=== PATIENT | male | born 1970 | race Caucasian/White ===

== ENCOUNTER 2017-11-15 15:19 | Emergency (ER) | payer SELFPAY ==
[~2017-11-15] VITALS: Ht 180.3 cm; Wt 51.0 kg
[~2017-11-15 15:19] MED LIST: ATEN1TAB73 PO; KLOR20TA6 PO; PTU50 PO; [UNRECOGNIZED DRUG - CODE] LEFT EYE
[2017-11-15 15:56] VITALS: BP 123/78; PULSE 87; RESP 18; TEMP 98.6; O2SAT 97
--- NOTE | 2017-11-15 18:47 | PD ---
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 He has had almost no vision in his left eye for the last 20 years per his report. He has history of Graves' ophthalmopathy. He does not have eye pain or injury. He reports vision in his right eye is normal. Patient was seen here 7 years ago and received a prescription for PTU but he never filled it or took it. He has never seen a doctor since. He is extremely noncompliant. Symptoms moderately severe. They are chronic going on 20 years now. No alleviating factors. Symptoms exacerbated by his noncompliance with medical treatment and follow-up. PFSH Past Medical History Blood Disorders: No Cancer: No Cardiovascular Problems: No Diminished Hearing: No Endocrine: No Genitourinary: No Immune Disorder: No Musculoskeletal: No Neurologic: No Psychiatric: No Respiratory: Yes (SPONTANEOUS PNEUMO X5) Immunizations Current: Yes Past Surgical History Tonsillectomy: Yes Social History Alcohol Use: Yes (SOCIAL) Tobacco Use: Yes (1 PPD) Substance Use: Yes (HX MARIJUANA) Allergies-Medications (Allergen,Severity, Reaction): Coded Allergies: penicillin G (Unverified Allergy, Severe, 11/15/17) morphine (Unverified Adverse Reaction, Mild, Rash, 11/15/17) Reported Meds & Prescriptions Reported Meds & Active Scripts Active No Active Prescriptions or Reported Medications Review of Systems General / Constitutional: No: Fever Eyes: Positive: Blurred Vision, Visual changes, Blindness HENT: No: Headaches Cardiovascular: No: Chest Pain or Discomfort Respiratory: No: Shortness of Breath Gastrointestinal: No: Abdominal Pain Genitourinary: No: Dysuria Musculoskeletal: No: Pain Skin: No Rash Neurologic: No: Weakness Psychiatric: No: Depression Endocrine: No: Polydipsia Hematologic/Lymphatic: No: Easy Bruising Physical Exam Narrative GENERAL: Thin disheveled well-developed patient in no apparent distress. SKIN: Focused skin assessment reveals no rash and nodules. Skin is Warm and dry. HEAD: Atraumatic. Normocephalic. EYES: Pupils equal and round. No scleral icterus. No injection or drainage. Extraocular muscles are intact. He has exophthalmos bilaterally. ENT: No nasal bleeding or discharge. Mucous membranes pink and moist. NECK: Trachea midline. No JVD. No dominant thyroid nodule or mass palpated CARDIOVASCULAR: Regular rate and rhythm. No murmur appreciated. RESPIRATORY: No accessory muscle use. Clear to auscultation. Breath sounds equal bilaterally. GASTROINTESTINAL: Abdomen soft, non-tender, nondistended. Hepatic and splenic margins not palpable. MUSCULOSKELETAL: No obvious deformities. No clubbing. No cyanosis. No edema. NEUROLOGICAL: Awake and alert. No obvious cranial nerve deficits. Motor grossly within normal limits. Normal speech. PSYCHIATRIC: Appropriate mood and affect; insight and judgment poor Data Data Last Documented VS Vital Signs Date Time Temp Pulse Resp B/P (MAP) Pulse Ox O2 Delivery O2 Flow Rate FiO2 11/15/17 19:29 89 18 118/79 (92) 99 Room Air 11/15/17 15:56 98.6 Orders Orders Thyroid Stimulating Hormone (11/15/17 18:16) Complete Blood Count With Diff (11/15/17 18:29) Basic Metabolic Panel (Bmp) (11/15/17 18:29) Labs Laboratory Tests Test 11/15/17 18:35 White Blood Count 4.9 TH/MM3 Red Blood Count 4.25 MIL/MM3 Hemoglobin 13.5 GM/DL Hematocrit 40.6 % Mean Corpuscular Volume 95.5 FL Mean Corpuscular Hemoglobin 31.7 PG Mean Corpuscular Hemoglobin Concent 33.2 % Red Cell Distribution Width 14.9 % Platelet Count 261 TH/MM3 Mean Platelet Volume 6.9 FL Neutrophils (%) (Auto) 64.6 % Lymphocytes (%) (Auto) 22.4 % Monocytes (%) (Auto) 10.2 % Eosinophils (%) (Auto) 2.4 % Basophils (%) (Auto) 0.4 % Neutrophils # (Auto) 3.1 TH/MM3 Lymphocytes # (Auto) 1.1 TH/MM3 Monocytes # (Auto) 0.5 TH/MM3 Eosinophils # (Auto) 0.1 TH/MM3 Basophils # (Auto) 0.0 TH/MM3 CBC Comment DIFF FINAL Differential Comment Blood Urea Nitrogen 16 MG/DL Creatinine 0.77 MG/DL Random Glucose 108 MG/DL Calcium Level 8.8 MG/DL Sodium Level 141 MEQ/L Potassium Level 3.8 MEQ/L Chloride Level 106 MEQ/L Carbon Dioxide Level 30.6 MEQ/L Anion Gap 4 MEQ/L Estimat Glomerular Filtration Rate 108 ML/MIN Thyroid Stimulating Hormone 3rd Gen LESS THAN 0.005 uIU/ML MDM Medical Decision Making Medical Screen Exam Complete: Yes Emergency Medical Condition: Yes Medical Record Reviewed: Yes Differential Diagnosis Graves' disease, hypothyroidism, exophthalmos, chronic vision loss Narrative Course I have reviewed the patient's electronic medical record. I reviewed his history and physical from admission in 2010. IV placed and labs sent CBC is normal Metabolic profile is normal TSH suggest hyperthyroidism with level of 0.005 Right eye acuity is 20/30. Left eye acuity is sufficient only to read the large E Patient has chronic untreated hyperthyroidism. His poor vision in the left eye is chronic. We discussed the medication that he was initially prescribed for hyperthyroidism which is propylthiouracil at 100 mg 3 times daily He wants me to write a prescription for it and he will "look into it" to decide if he wants to take it. As noted he is very noncompliant. I recommended primary care and endocrinology and ophthalmology follow-up. Patient is insistent on leaving now. He does not want to stay here any longer. He would absolutely refuse hospital stay. Diagnosis Primary Impression: Graves' ophthalmopathy Additional Impression: Hyperthyroidism Additional Instructions: Follow-up with primary care and endocrinology and ophthalmology Med/Other Pt SpecificInfo: Prescription(s) given Scripts Propylthiouracil (Propylthiouracil) 50 Mg Tab 100 MG PO Q8HR for Thyroid, #120 TAB 0 Refills Prov: Roberto Ness MD 11/15/17 Disposition: DISCHARGE HOME Condition: Stable Roberto Ness MD Nov 15, 2017 18:47
[2017-11-15 19:04] LABS: AUTOMATED NEUTROPHIL # 3.1 TH/MM3 (1.8-7.7); BASOPHIL % 0.4 % (0.0-2.0); EOSINOPHIL # 0.1 TH/MM3 (0-0.4); EOSINOPHIL % 2.4 % (0.0-4.0); HEMATOCRIT 40.6 % (39.0-51.0); HEMOGLOBIN 13.5 GM/DL (13.0-17.0); LYMPH % 22.4 % (9.0-44.0); LYMPHOCYTE # 1.1 TH/MM3 (1.0-4.8); MEAN CELL VOLUME 95.5 FL (80.0-100.0); MEAN CORPUSCULAR HEMOGLOBIN 31.7 PG (27.0-34.0); MEAN CORPUSCULAR HGB CONC 33.2 % (32.0-36.0); MEAN PLATELET VOLUME 6.9 FL (7.0-11.0); MONO % 10.2 % (0.0-8.0); MONOCYTE # 0.5 TH/MM3 (0-0.9); NEUT % 64.6 % (16.0-70.0); PLATELET COUNT 261 TH/MM3 (150-450); RED BLOOD COUNT 4.25 MIL/MM3 (4.50-5.90); RED CELL DISTRIBUTION WIDTH 14.9 % (11.6-17.2); WHITE BLOOD COUNT 4.9 TH/MM3 (4.0-11.0)
[2017-11-15 19:18] LABS: BICARBONATE 30.6 MEQ/L (21.0-32.0); CALCIUM 8.8 MG/DL (8.5-10.1); CREATININE 0.77 MG/DL (0.60-1.30)
[2017-11-15 19:29] VITALS: BP 118/79; PULSE 89; RESP 18; O2SAT 99
[2017-11-15] MEDS ORDERED: PROP50TA2 PO (21:04)
== END 2017-11-15 21:19 | disposition home or self-care (01) ==
LOC: NEPD 15:19
DX: E05.00 Thyrotoxicosis with diffuse goiter without thyrotoxic crisis or storm (principal); F17.210 Nicotine dependence, cigarettes, uncomplicated; Z91.19 Patient's noncompliance with other medical treatment and regimen
CPT/HCPCS: 80048; 84443; 85025; 99283